=== PATIENT | male | born 1975 | race African-American/Black ===

== ENCOUNTER → 2017-12-09 | Day surgery (SDC) | payer BC ==
[~2017-12-09] MED LIST: IV RINGERS,LACTATED 1000ML 1,000 ML IV SCH; LIDOCAINE 1% PF 2 ML VIAL. ID PRN; MIDAZOLAM HCL/PF 2 MG/2 ML VIAL. IV PRN; PROPOFOL 40 ML IV ONE; fentaNYL PF VIAL 100 MCG/2 ML VIAL IV PRN
[2017-12-09 13:30] VITALS: BP 120/82
--- NOTE | 2017-12-10 16:10 | PATHOLOGY ---
[facility] Accession Number: [id number] . 01 Material submitted: . PART A: DUODENAL BX PART B: RANDOM COLON BX . 01 Clinical history: . Abdominal pain . 02 Diagnosis: A. Small bowel, duodenum, biopsy: - No pathologic diagnosis. - Normal villous architecture. . B. Colon, random biopsies: - Fragments of colonic mucosa with no significant histopathologic diagnosis. (SKM:[facility] 12/10/2017) QTP/12/10/2017 . 02 Electronically signed: . Nabor Velazquez MD, Pathologist NPI- [id number] . 01 Gross description: . A. Received in formalin labeled "Marlee Yuan, duodenal BX," are 8 segments of redmond soft tissue measuring 2.2 x 1.3 x 0.2 cm in aggregate dimensions and ranging from 0.3 to 0.5 cm in maximum dimension. The specimen is submitted entirely in cassette A1. . B. Received in formalin labeled "Marlee Yuan, random colon BX's," are 4 segments of red[place] soft tissue measuring 1.3 x 0.6 x 0.3 cm in aggregate dimensions and ranging from 0.4 to 0.5 cm in maximum dimension. The specimen is submitted entirely in cassette B1. (TSD; 12/09/2017) TOB/TOB . 02 Pathologist provided ICD-10: R10.9 . 02 CPT . 825643, [id number] Specimen Comment: A courtesy copy of this report has been sent to Specimen Comment: [phone]. Specimen Comment: Report sent to Performed at: [address], [place], [place] [id number] MD Zeke Vail MD Phone: [phone] Performed at: 02 [facility] [address] [place] [id number] MD Randy Arnett MD Phone: [phone]
== END | disposition home or self-care (01) ==
LOC: SURG 10:56
PROVIDERS: ATTEND Internal Medicine Gastroenterology
DX: K64.0 First degree hemorrhoids (principal); K29.50 Unspecified chronic gastritis without bleeding; K31.89 Other diseases of stomach and duodenum; J45.909 Unspecified asthma, uncomplicated
CPT/HCPCS: 43239; 45380; 88305; J2704; 45378